=== PATIENT | female | born 1960 | race Caucasian/White ===

== ENCOUNTER 2023-12-08 14:42 | Emergency (ER) | payer OTHER, SELFPAY ==
[2023-12-08 15:00] VITALS: BP 127/94
[2023-12-08 15:24] LABS: % Basophils 0.7 % (0-2); % Eosinophils 1.1 % (0-6); % Immature Granulocytes 0.2 % (0-0.5); % Lymphocytes 27.8 % (20.5-51.1); % Monocytes 12.5 % (1.7-9.3); % Neutrophils 57.7 % (42.2-75.2); Absolute Eosinophils 0.1 10^3/uL (0-0.7); Absolute Lymphocytes 1.3 10^3/uL (1.2-3.4); Absolute Monocytes 0.6 10^3/uL (0.1-0.6); Absolute Neutrophils 2.6 10^3/uL (1.4-6.5); Hematocrit 34.4 % (37.0-47.0); Hemoglobin 12.4 g/dL (12.0-16.0); Mean Corpuscular Hgb 28.6 pg (27.0-31.0); Mean Corpuscular Volume 79.3 fL (81.0-99.0); Mean Platelet Volume 9.2 fL (7.4-10.4); Nucleated Red Blood Cells % 0 %; Platelet Count 230 10^3/uL (130-400); Red Blood Cell Count 4.34 10^6/uL (4.20-5.40); Red Cell Dist. Width 11.9 % (11.5-14.5); White Blood Cell Count 4.6 10^3/uL (4.8-10.8)
[2023-12-08 15:46] LABS: ALT (SGPT) 20 U/L (0-35); AST (SGOT) 26 U/L (14-36); Albumin 4.7 g/dl (3.5-5.0); Alkaline Phosphatase 69 U/L (38-126); Blood Urea Nitrogen 11 mg/dl (7-17); Calcium 9.9 mg/dl (8.4-10.2); Carbon Dioxide 23 mmol/L (22-30); Chloride 99 mmol/L (98-107); Glucose 89 mg/dl (70-99); Lipase 125 U/L (23-300); Potassium 4.3 mmol/L (3.5-5.1); Sodium 139 mmol/L (135-145); Total Bilirubin 0.8 mg/dl (0.2-1.3); Total Protein 7.1 g/dl (6.3-8.2); eGFR > 60.00
--- NOTE | 2023-12-08 17:39 | ED.GENMED ---
History of Present Illness
General
Chief Complaint: Abdominal Pain
Source: patient
Exam Limitations: none
Time Seen by Provider: 12/08/23 16:34
Nursing documentation reviewed up to this point in time: agreed with
History of Present Illness
History of Present Illness:
Patient to ED with complaint of upper abdominal pain/cramping. States symptoms started on October 29. States she developed a rash under right breast. Told it was shingles and placed on acyclovir. A few days later rash spread to both forearm. She
was then placed on prednisone by dermatology. 3 days latera abdominal pain began. She was seen by ED, told to stop predisone. Pain persisited. She was seen at [facility], had abd. CT showing pancolitis. She was initially prescribed flagyl by
her GI changed to Vanco. Finished antibiotic 1 week ago and pain persists. States she has not been ablr to eat or 2 weeks. No diarrhea, no vomiting. Placed on Nexium by her GI and she feels that this has helped a bit but overall she is still
uncomfortable. Brought t oED by spouse for eval. Colonoscopy and endoscopy scheduled for 12/17
Past History
Past History
ED Past Medical History: Other (IBS)
ED Past Surgical History: None
Review of Systems
Review of Systems
Allergies reviewed?: Yes
All Other Systems: ROS reviewed and negative except as documented in HPI and ROS
Constitutional: Reports weight loss and fatigue
EENT: Reports no symptoms
Respiratory: Reports no symptoms
Cardiac: Reports no symptoms
ABD/GI: Reports abdominal pain (epigastric)
: Reports no symptoms
Musculoskeletal: Reports no symptoms
Skin: Reports no symptoms
Neurological: Reports no symptoms
Hematologic/Lymphatic: Reports no symptoms
Psychiatric: Reports no symptoms
Phy Exam
General Physical Exam
General Presentation: well appearing and mild distress
General age: appears stated age
General Skin: warm and dry
General Habitus: normal
General Mental: alert
Cardiovascular Exam
Cardiovascular Exam: regular rate/rhythm and no edema
Pulmonary Exam
Pulmonary Exam: no respiratory distress and chest non tender
Gastrointestinal Exam
Gastrointestinal Exam: normal bowel sounds, soft, no organomegaly, no pulsatile mass, non distended, no cva tenderness and cva tenderness
Palpation: generalized: Moderate tenderness
Musculoskeletal Exam
Musculoskeletal Exam: full ROM and neuro vasc intact
Skin Exam
Skin Exam: normal color, warm/dry and no rash
Psychiatric Exam
Psychiatric Exam: normal mood/affect
Course
Orders/Labs/Results
Orders:
Orders
12/08/23 15:06
Electrocardiogram (*1) Urgent
Reason for Study: Abdominal Pain
EKG- Treatment ONCE
12/08/23 15:17
Complete Blood Count/With Diff Urgent
Comprehensive Metabolic Panel Urgent
Lipase Urgent
12/08/23 17:17
0.9% Sodium Chloride 1000 ml [Nss] 1,000 ml IV BOLUS
Iohexol [Omnipaque] See Protocol PO NOW STA
Pantoprazole [Protonix IV] 40 mg IV NOW STA
12/08/23 17:18
CT Abd/pel W Iv And Oral Contr Urgent
Comment:
Reason For Exam: pain, diffuse
12/08/23 18:03
Troponin I Urgent
Abnormal Lab Results
12/08/23
15:17
WBC 4.6 L 10^3/uL
(4.8-10.8)
Hct 34.4 L %
(37.0-47.0)
MCV 79.3 L fL
(81.0-99.0)
Monocytes % 12.5 H %
(1.7-9.3)
12/08/23 15:17
12/08/23 15:17
Vital Signs
Initial and Last Documented VS:
Initial Vital Signs
Temp Pulse Resp BP Pulse Ox
98.3 F 102 16 127/94 96
12/08/23 15:00 12/08/23 15:00 12/08/23 15:00 12/08/23 15:00 12/08/23 15:00
Last Documented Vital Signs
Temp Pulse Resp BP Pulse Ox
98.1 F 82 18 146/96 97
12/08/23 20:00 12/08/23 20:00 12/08/23 20:00 12/08/23 20:00 12/08/23 20:00
*Radiology
Radiology exam reviewed: radiology read reviewed
*Pulse Oximetry
Patient hypoxic: no
*Critical Care Note
Total Time (30-74mins, 75-104mins- exclusive of procedures): Not Applicable
Update Note
Update Note:
Labs, CT reviewed with patient and spouse. No findings to explain her symptoms. Will discharge home, followup with GI. Endoscopy/colonoscopy on 12/19
ED Attending Note
-
Portions of this chart may have been created with voice recognition software.� Occasional wrong word or��sound alike� substitutions may have occurred due to the inherent limitations of voice recognition software.
Discharge Plan
Departure
Patient Disposition: Home (Routine Discharge)
Date of Disposition: 12/08/23
Time of Disposition: 20:42
Patient with high blood pressure during this ER visit?: No
Condition: Good
Covid-19: Not Applicable
Discharge Problem:
Abdominal pain
Instructions: Abdominal Pain
Referrals:
Alyssa Key MD [Active] -
Brenda Farah CRNP [Family Provider] -
Interventions
Interventions:
*Risk Screen - Suicide Last Done: 12/08/23 18:30
*General Assessment Last Done: 12/08/23 15:00
*Neglect/Abuse Screening Last Done: 12/08/23 15:00
ED- Fall Risk Assessment Last Done: 12/08/23 18:30
*ED COVID-19 Vaccine History Last Done: 12/08/23 19:00
*Nursing Disposition Last Done: 12/08/23 21:34
NE-Xhxsnf-Ujvforzvbq Assessment Last Done: 12/08/23 18:30
Discharge Date and Time
Discharge Date/Time: 12/08/23 21:34
Print Language: HEBREW
[2023-12-08] MEDS: OMNIPAQUE 50 ML PO (17:42)
[2023-12-08] MEDS: PROTONIX IV 40 MG IV (17:42)
[2023-12-08] MEDS: NSS 1000 IV (17:43)
[2023-12-08 18:00] VITALS: BP 131/80
[2023-12-08 18:34] LABS: Troponin I < 0.012 ng/ml
[2023-12-08 20:00] VITALS: BP 146/96
== END 2023-12-08 21:34 | disposition home or self-care (01) ==
LOC: EMR 14:42
PROVIDERS: Emergency Medicine; Nurse Practitioner; EMERGENCY PHYSICIAN Emergency Medicine; FAMILY PHYSICIAN Nurse Practitioner Family
DX: R10.9 Unspecified abdominal pain (principal); R21 Rash and other nonspecific skin eruption; K58.9 Irritable bowel syndrome, unspecified
CPT/HCPCS: 99284; 96374; 96360; 74177; 80053; 83690; 84484; 85025; 93005; Q9967